=== PATIENT | male | born 1985 ===

== ENCOUNTER 2017-12-30 13:26 | Emergency (ER) | payer OTHER ==
[2017-12-30 13:33] VITALS: O2SAT 99
--- NOTE | 2017-12-30 14:24 | C.PDOC ---
History Of Present Illness 32 yo male w/o significant PMHx come inf or evaluation of cold sx for past 1 week associated with sore throat, dry cough. Pt sts, for past few days developed Left upper back pain with coughing. Otherwise, pt denies high fever, chills, headache, dizziness, neck pain, drooling, dysphagia, dyspnea, SOB, wheezing, abd. pain, V/D, back pain, UTI sx. Ambulate to Ed for evaluation, not in resp. distress. HPI: Influenza Time Seen by Provider: 12/30/17 13:50 Chief Complaint: Cough, Cold, Congestion History Per: Patient Onset/Duration Of Symptoms: Days (7) Hx Influenza Vaccination: No Past Medical History Reviewed: Historical Data, Nursing Documentation, Vital Signs Vital Signs: Last Vital Signs Temp 98.2 F 12/30/17 13:29 Pulse 99 H 12/30/17 13:29 Resp 18 12/30/17 13:29 BP 149/84 12/30/17 13:29 Pulse Ox 99 12/30/17 13:29 - Medical History PMH: No Chronic Diseases Surgical History: No Surg Hx Family History: States: No Known Family Hx - Social History Hx Tobacco Use: No Hx Alcohol Use: No Hx Substance Use: No - Immunization History Hx Tetanus Toxoid Vaccination: No Hx Influenza Vaccination: No Hx Pneumococcal Vaccination: No Review Of Systems Except As Marked, All Systems Reviewed And Found Negative. Constitutional: Positive for: Malaise. Negative for: Fever, Chills ENT: Positive for: Nose Congestion, Throat Pain, Throat Swelling. Negative for : Ear Pain, Ear Discharge, Nose Discharge Cardiovascular: Negative for: Chest Pain, Palpitations, Edema, Light Headedness Respiratory: Positive for: Cough. Negative for: Shortness of Breath, Wheezing Gastrointestinal: Negative for: Nausea, Vomiting, Abdominal Pain Genitourinary: Negative for: Dysuria, Incontinence Musculoskeletal: Positive for: Back Pain (upper, left). Negative for: Neck Pain Skin: Negative for: Rash Neurological: Negative for: Altered Mental Status, Headache, Dizziness Physical Exam - Physical Exam Appears: Well, Non-toxic, No Acute Distress Skin: Normal Color, Warm, Dry, No Rash Head: Normacephalic Eye(s): bilateral: PERRL Ear(s): Bilateral: Normal Nose: No Flaring, Discharge (B/L nasal congestion ) Oral Mucosa: Moist, No Drooling Tongue: Normal Appearing Lips: Normal Appearing Throat: Erythema (mild B?L with mild edema), No Drooling Neck: Trachea Midline, Supple, Other ((-) meningeal sign) Cardiovascular: Rhythm Regular, No Murmur, No JVD Respiratory: No Decreased Breath Sounds, No Accessory Muscle Use, No Stridor, No Wheezing Gastrointestinal/Abdominal: Soft, No Tenderness, No Distention, No Guarding Back: No CVA Tenderness Extremity: Normal ROM, No Deformity, No Swelling Neurological/Psych: Oriented x3, Normal Speech, Normal Motor, Normal Sensation, Normal Reflexes - ECG O2 Sat by Pulse Oximetry: 99 Pulse Ox Interpretation: Normal - Other Rad Chest xray X-Ray: Interpreted by Me, Viewed By Me X-Ray Interpretation: (-) acute consolidation - Progress ED Course And Treament: On re-evaluation, pt is afebrile, hemodynamicaly stable. Non-toxic. Tolerate PO well in ED. PulseOx 99% RA Neck: Supple, (-) meningeal sign ENT: exam c/w mild pharyngitis Lungs: CTA B/L, BS equal B/L. CVS: (+)S1S2, reg. Abd: benign, (-) guarding, (-) rebound back: (-) CVA tenderness CXR review, normal study. Pt has clinical findings c/w bronchitis. Pt advised. ref. to f/u with PMD in 2-3 days for re-eval. return if any new changes. Disposition Counseled Patient/Family Regarding: Studies Performed, Diagnosis, Need For Followup, Rx Given - Disposition Referrals: [facility] [Outside] Disposition: HOME/ ROUTINE Disposition Time: 14:25 Condition: STABLE Additional Instructions: Encourage fluids Take medication as prescribed Follow up with PMD in 2-3 days for re-evaluation. Return to ED if nay worsening or new changes. Prescriptions: Azithromycin [Zithromax] 250 mg PO DAILY #4 tab Benzonatate [Tessalon Perle] 100 mg PO TID #14 capsule Prednisone [Deltasone] 20 mg PO DAILY #3 tablet Instructions: Acute Bronchitis Forms: [facility] (Filipino) Print Language: KHMER - Clinical Impression Clinical Impression: Bronchitis
[2017-12-30 15:06] VITALS: BP 123/85; PULSE 73; RESP 20; TEMP 98
== END 2017-12-30 15:06 | disposition home or self-care (01) ==
LOC: C.ER 13:26
DX: J40 Bronchitis, not specified as acute or chronic (principal)

== ENCOUNTER 2018-02-08 00:12 | Emergency (ER) | payer OTHER ==
[2018-02-08 01:21] LABS: BASO # 0.1 K/uL (0.0-0.2); BASO % 0.7 % (0.0-2.0); EOS # 0.1 K/uL (0.0-0.7); EOS % 1.1 % (0.0-4.0); HEMOGLOBIN 14.6 g/dL (12.0-18.0); LYMPH # 3.1 K/uL (1.0-4.3); LYMPH % 28.6 % (20.0-40.0); MEAN CELL VOLUME 85.3 fL (80.0-94.0); MEAN CORPUSCULAR HGB CONC 35.2 g/dL (33.0-37.0); MEAN PLATELET VOLUME 7.5 fL (7.2-11.7); MONO % 9.2 % (0.0-10.0); NEUT # 6.5 K/uL (1.8-7.0); NEUT % 60.4 % (50.0-75.0); NRBC % 0.1 % (0.0-2.0); RBC 4.87 Mil/uL (4.40-5.90); RED CELL DISTRIBUTION WIDTH 13.6 % (11.5-14.5); WHITE BLOOD COUNT 10.8 K/uL (4.8-10.8)
[2018-02-08 01:23] LABS: URINE BILIRUBIN NEGATIVE (NEGATIVE); URINE CLARITY Clear (Clear); URINE COLOR Straw (YELLOW); URINE GLUCOSE (UA) NORMAL (Normal); URINE LEUKOCYTE ESTERASE NEG Leu/uL (Negative); URINE PROTEIN NEGATIVE (NEGATIVE); URINE UROBILINOGEN NORMAL mg/dL (0.2-1.0)
[2018-02-08 01:24] LABS: URINE BLOOD NEGATIVE (NEGATIVE)
--- NOTE | 2018-02-08 01:31 | C.PDOC ---
History Of Present Illness 33 year old male presents to the ED for evaluation of persistent epigrastic pain which has been ongoing for 1 month. Patient feels symptoms in his sternal area with circumferential radiation to his left back region. Patient states current episode of symptoms began at around 2300 today while he was sitting at rest. Patient currently states his symptoms have improved. Patient also reports occasional shortness of breath. Denies associated with movement or position change. Patient also has secondary complaint of pain with swallowing which has been ongoing for several months. Patient reports difficulty swallowing food and liquids. He denies any obstruction symptoms. Patient has questionable weight loss. Time Seen by Provider: 02/08/18 00:49 Chief Complaint (Nursing): Chest Pain History Per: Patient History/Exam Limitations: no limitations Onset/Duration Of Symptoms: Other (1 month ) Current Symptoms Are (Timing): Better Additional History Per: Patient Past Medical History Reviewed: Historical Data, Nursing Documentation, Vital Signs Vital Signs: Last Vital Signs Temp 97.9 F 02/08/18 00:26 Pulse 86 02/08/18 00:47 Resp 16 02/08/18 00:47 BP 121/78 02/08/18 00:47 Pulse Ox 96 02/08/18 01:36 - Medical History PMH: No Chronic Diseases Surgical History: No Surg Hx Family History: States: Unknown Family Hx - Social History Hx Tobacco Use: No Hx Alcohol Use: No Hx Substance Use: No - Immunization History Hx Tetanus Toxoid Vaccination: No Hx Influenza Vaccination: No Hx Pneumococcal Vaccination: No Review Of Systems ENT: Positive for: Other (pain with swallowing ) Respiratory: Positive for: Shortness of Breath Gastrointestinal: Positive for: Abdominal Pain (epigastric ) Physical Exam - Physical Exam Appears: Non-toxic, No Acute Distress Skin: Normal Color, Warm, Dry Head: Atraumatic, Normacephalic Eye(s): bilateral: Normal Inspection Oral Mucosa: Moist Throat: Normal, No Erythema, No Exudate Neck: Normal ROM, Supple Chest: Symmetrical, No Deformity, No Tenderness Cardiovascular: Rhythm Regular, No Murmur Respiratory: Normal Breath Sounds, No Rales, No Rhonchi, No Wheezing Gastrointestinal/Abdominal: Soft, No Tenderness, No Guarding, No Rebound Extremity: Normal ROM, Capillary Refill (less than 2 seconds ) Neurological/Psych: Oriented x3, Normal Speech, Normal Cognition ED Course And Treatment - Laboratory Results Result Diagrams: 02/08/18 01:17 02/08/18 01:17 ECG: Interpreted By Me, Viewed By Me ECG Rhythm: Sinus Rhythm, R BBB Rate From EC O2 Sat by Pulse Oximetry: 96 (on RA) Pulse Ox Interpretation: Normal - Radiology CXR: Interpreted by Me, Viewed By Me CXR Interpretation: Yes: Other (unchanged from prior ) Progress Note: Bloodwork, urinalysis, CXR, EKG ordered and reviewed. Toradol IVP administered. Reevaluation Time: 02:40 Reassessment Condition: Improved (CP RESOLVED. PENDING GI APPOINTMENT 02/09.) Disposition Counseled Patient/Family Regarding: Studies Performed, Diagnosis, Need For Followup - Disposition Referrals: [facility] [Outside] [facility] [Outside] Disposition: HOME/ ROUTINE Disposition Time: 02:41 Condition: IMPROVED Instructions: Costochondritis (DC), Dysphagia (DC) Forms: [facility] (Hong Konger), Work Excuse Print Language: QATARI - Clinical Impression Clinical Impression: Chest pain, Painful swallowing - Scribe Statement The provider has reviewed the documentation as recorded by the Scribe (Lucy Hearn) Provider Attestation: All medical record entries made by the Scribe were at my direction and personally dictated by me. I have reviewed the chart and agree that the record accurately reflects my personal performance of the history, physical exam, medical decision making, and the department course for this patient. I have also personally directed, reviewed, and agree with the discharge instructions and disposition.
[2018-02-08 01:54] LABS: ALB/GLOB RATIO 1.2 (1.0-2.1); ALBUMIN 4.3 g/dL (3.5-5.0); ALT/SGPT 68 U/L (21-72); AST/SGOT 40 U/L (17-59); BLOOD UREA NITROGEN 8 mg/dL (9-20); CALCIUM 9.2 mg/dl (8.6-10.4); GFR AFRICAN-AMERICAN > 60; GFR NON-AFRICAN AMERICAN > 60; LIPASE 45 U/L (23-300)
[2018-02-08 02:51] VITALS: BP 96/63; PULSE 90; RESP 18; TEMP 98; O2SAT 97
--- NOTE | 2018-02-08 10:32 | RAD ---
HISTORY: Chest pain COMPARISON: Comparison made with chest radiograph 12/30/2017. TECHNIQUE: Chest PA and lateral FINDINGS: LUNGS: Minor biapical pleural thickening. The interstitial markings are increased and coarsened. PLEURA: No significant pleural effusion identified. No pneumothorax apparent. CARDIOVASCULAR: Normal. OSSEOUS STRUCTURES: No significant abnormalities. VISUALIZED UPPER ABDOMEN: Normal. OTHER FINDINGS: None. IMPRESSION: Mild biapical pleural thickening with increased coarse interstitial markings.
--- NOTE | 2018-02-11 08:54 | CARD ---
APPROVED REPORT EKG Measurement Heart [id number] <Conclusion> Normal sinus rhythm Incomplete right bundle branch block Borderline ECG
== END 2018-02-08 02:55 | disposition home or self-care (01) ==
LOC: C.ER 00:12
DX: R07.9 Chest pain, unspecified (principal); R13.10 Dysphagia, unspecified
CPT/HCPCS: 71046; 80053; 81001; 83690; 84484; 85025; 93005; 96374; 99285; J1885